=== PATIENT | male | born 1975 | race Caucasian/White ===

== ENCOUNTER 2022-03-10 09:51 | Day surgery (SDC) | payer OTHER, SELFPAY ==
[2022-03-04 11:52] VITALS: BMI 40.3
--- NOTE | 2022-03-09 09:20 | P.CONAN_ITS ---
Documented by User: Dottie Delgado NP 03/09/22 09:21 HPI - Anesthesia Eval Consult details Narrative: 46yo M for Colonoscopy [facility] Past Medical History Medical History Migraine headache Nephrolithiasis Pre-diabetes Sleep apnea Surgical History Surgical History History of back surgery History of vasectomy Hx of removal of neck cyst Social History Social History Advance Directives: No Advance Directives Information Provided: Yes Meds Allergies Allergy/AdvReac Type Severity Reaction Status Date / Time No Known Allergies Allergy Verified 03/10/22 10:07 [No Known Allergies*] Home Medications Medication Instructions Recorded Confirmed Last Taken Type metformin 500 mg tablet,extended 1,000 mg PO DAILY 03/04/22 03/04/22 Unknown History release 24 hr Exam Exam Date and Time: March 09, 2022 0920 Height,Weight and Vital Signs: Height 5 ft 6 in Weight 113.398 kg Assessment and Plan Assessment Anesthesia Assessment: Chart Reviewed Documented by User: Misty Gray MD 03/10/22 10:17 [facility] Active Problems Active Problems: Diabetes Denies COLTON. Patient states he had a sleep study which was negative for COLTON Increased BMI Past Medical History Medical History Migraine headache Nephrolithiasis Pre-diabetes Sleep apnea Family History Family history of problems with anesthesia: No Surgical History Surgical History History of back surgery History of vasectomy Hx of removal of neck cyst History of Problems with Anesthesia: No Social History Social History Advance Directives: No Advance Directives Information Provided: Yes Meds Allergies Allergy/AdvReac Type Severity Reaction Status Date / Time No Known Allergies Allergy Verified 03/10/22 10:07 [No Known Allergies*] Home Medications Medication Instructions Recorded Confirmed Last Taken Type metformin 500 mg tablet,extended 1,000 mg PO DAILY 03/04/22 03/04/22 Unknown History release 24 hr Exam Airway Mallampati Class: I TM Dist: >3cm Neck ROM: Full Loose/Missing/Broken Teeth: Yes (Some missing. No broken or loose) Heart: RRR Lungs: CTAB Assessment and Plan Assessment Anesthesia Assessment: Anesthesia Plan Discussed Final Anesthetic Review Family History of Problems with Anesthesia: No History of Problems with Anesthesia: No NPO: Yes ASA Class: III Final Preanesthetic Review: No Changes in Pt Med Stat, Meds/Allgs Chart Reviewed, Consent Obtained/Reviewed and Anes Risks/Benef Reviewed Patient Risk: Intermediate Procedure Risk: Low Assessment/Block/Sedation in SS: Assess/Block/Sedation-SS Anesthetic Plan Anesthetic Plan: MAC: Disposition: Standard PACU
[2022-03-10 10:08] VITALS: BMI 37.9
[2022-03-10 10:26] VITALS: BP 129/82; PULSE 78; RESP 16; TEMP 36.3; O2SAT 97
[2022-03-10] MEDS: Lactated Ringers 1,000 ML 100 ML IVCONT (10:38)
[2022-03-10 10:40] LABS: Glucose, Whole Blood 103 mg/dL (60-115)
--- NOTE | 2022-03-10 11:13 | MHC.SHP ---
Pre-Procedural Eval Section A Date of Service: 03/10/22 Section B Chief Complaint: screening Details of Present Illness: see H&P no changes Relevant Family History (Specify if Yes): No Relevant Social History: None Present Medications: see Short Stay Collaborative assessment Medical History: No relevant PMH History of Previous Operations: No relevant previous surgery Allergies: Allergies Allergy/AdvReac Type Severity Reaction Status Date / Time No Known Allergies Allergy Verified 03/10/22 10:07 [No Known Allergies*] Review of Systems Sugical H&P ROS: Negative: Constitution, Cardiovascular, Respiratory, Neurological, Psychiatric, Hem-Onc, Allergic/Immunologic, Gastrointestinal, Genitourinary, Musculoskeletal, Integumentary, Endocrine and Eyes/Ears/Nose/Throat Exam Surgical H&P Exam: Normal: HEENT, Normal: Heart, Normal: Lungs, Normal: Extremities, Normal: Abdomen, Normal: Skin and Normal: Neurological Plan I have reviewed the history and physical and performed a pertinent physical examination on my patient. No changes have occurred unless specified.
[2022-03-10 11:46] VITALS: BP 119/56; PULSE 78; RESP 16; TEMP 36.2; O2SAT 94
--- NOTE | 2022-03-10 11:46 | PM.OP ---
Brief Operative Note Date of Service: 03/10/22 Pre-op diagnosis: screening Post-op diagnosis: same Procedure: colonoscopy Surgeon: Billy Mcclure Anesthesia: MAC Was an Invasive Cardiovascular Technologist used for this Procedure?: No Estimated blood loss (mL): 2 Pathology: other Condition: stable Disposition: PACU
[2022-03-10 12:00] VITALS: BP 105/65; PULSE 70; RESP 16; O2SAT 93
[2022-03-10 12:15] VITALS: BP 104/66; PULSE 76; RESP 16; TEMP 36.2; O2SAT 95
--- NOTE | 2022-03-10 22:03 | OP_ITS ---
SURGEON: Billy Mcclure MD INDICATIONS: Colon cancer screening. PREOPERATIVE DIAGNOSIS: POSTOPERATIVE DIAGNOSIS: PROCEDURE PERFORMED: ESTIMATED BLOOD LOSS: COMPLICATIONS: ANESTHESIA: ASSISTANTS: SPECIMENS: PROCEDURE: Colonoscopy to the terminal ileum with biopsy. MEDICATIONS: Monitored anesthesia care. DESCRIPTION OF PROCEDURE: History and physical performed. The risks and benefits of the procedure were explained to the patient. Informed consent was obtained. The patient was placed in the left lateral decubitus position. A digital rectal exam was performed and was found to be normal. The Olympus pediatric video colonoscope was introduced into the rectum and advanced to the cecum without difficulty. The cecum was identified by transillumination, palpation, and identification of ileocecal valve. Examination was performed. The scope was removed. He tolerated the procedure well and was taken to recovery area in stable condition. FINDINGS: The terminal ileum was examined and appeared normal. The visualized colonic mucosa was within normal limits without evidence of masses or ulcers. A single polyp measuring less than 5 mm was identified at 40 cm from the anal verge. The polyp was removed with biopsy forceps. No other polyps were identified. Retroflexed examination did show some small internal hemorrhoids. IMPRESSION: Colon polyp. RECOMMENDATIONS: Follow up the biopsy results. MD FRANCIS García/LEOPOLDO / [id number]
== END 2022-03-10 13:04 | disposition home or self-care (01) ==
PROVIDERS: PCP Internal Medicine; Visit Provider Internal Medicine Gastroenterology
PROC: 0DJD8ZZ Inspection of Lower Intestinal Tract, Via Natural or Artificial Opening Endoscopic (ICD-10-PCS; CPT 45378; principal; 2022-03-10 10:50)
DX: Z12.11 Encounter for screening for malignant neoplasm of colon (principal); K63.5 Polyp of colon; K64.8 Other hemorrhoids; R73.03 Prediabetes; G43.909 Migraine, unspecified, not intractable, without status migrainosus; Z79.84 Long term (current) use of oral hypoglycemic drugs; Z98.52 Vasectomy status; Z87.442 Personal history of urinary calculi
CPT/HCPCS: 45380; 82947; 88305

== ENCOUNTER 2024-11-07 14:03 | Outpatient (AMB) | payer OTHER, SELFPAY ==
--- NOTE | 2024-11-07 14:08 | MHC.PC.OV ---
Vital Signs 11/07/24 14:10 Height 5 ft 6.93 in Weight 224 lb 4 oz BMI 35.2 BP 120/82 Blood Pressure Location Lt brachial Position Sitting Pulse 80 Pulse Source Pulse Oximeter Temp 97.1 F Temp Source Temporal Artery Scan Pulse Oximetry (%) 97 Oxygen Delivery Method Room Air Intake Visit Reasons: establish care Intake Note: Patient is a new patient here to establish care for Pre-diabetes. Transferring care from [facility]. Medical records have been requested and have not received. Architecture Technician Required: No Water Hydrant Installer: Not Required per policy Accompanied by: Self / Same As Patient Allergies No Known Allergies [No Known Allergies*] Allergy (Verified 11/07/24 14:31) Medication List - Last Reconciled 11/07/24 by Nereyda Buenrostro PA-C No Known Home Meds Tobacco use date assessed: 11/07/24 Dental Screening Dental Screen Date: 11/07/24 Did you have a dental visit in the last 12 months?: Yes Did you have a dental problem in the last 6 months where you did not have access to dental care?: No Was dental information given to patient?: Patient has dentist HPI establish care HPI Details 49-year-old male coming to the office for the 1st time. Patient completed colonoscopy [address] Mcclure hyperplastic colon polyp. The patient is a 49-year-old male presenting with elevated blood glucose levels and diabetes management. Diagnosed with prediabetes three years ago, the patient now has Type 2 Diabetes Mellitus with a current A1c of 10.22%. left shoulder pain is reported, exacerbating while lying on it. History of migraines that resolved with caffeine cessation and avoidance of spicy foods. Negative screening for anxiety and depression was reported, though screening was conducted. Recently had eye exam was given a new prescription. 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 1. Little interest or pleasure in doing things: not at all 2. Feeling down, depressed, or hopeless: not at all 3. Trouble falling or staying asleep, or sleeping too much: not at all 4. Feeling tired or having little energy: not at all 5. Poor appetite or overeating: not at all 6. Feeling bad about yourself - or that you are a failure or have let yourself or your family down: not at all 7. Trouble concentrating on things, such as reading the newspaper or watching television: several days 8. Moving or speaking so slowly that other people could have noticed. Or the opposite - being so fidgety or restless that you have been moving around a lot more than usual: several days 9. Thoughts that you would be better off or of hurting yourself in some way: not at all Total score: 2 Depression Screening Interpretation: Positive Depression Screening Follow-up: Declines treatment Depression Screening Done: Yes Source: Developed by Drs. Ricardo Renteria, Ellie Santoro, George Hanley and colleagues, with an educational j carlos from [employer]. Thrive Questionnaire Date Thrive assessed: 11/07/24 I am a: Patient What is your living situation today?: I have a steady place to live Within the past 12 months, did the food you bought not last and you didn't have the money to get more?: Never true Within the past 12 months, did you worry whether your food would run out before you got money to buy more?: I choose not to answer this question Do you have trouble paying for medicines?: I choose not to answer this question Do you have trouble getting transportation to medical appointments?: No Do you have trouble paying your heating and electricity bill?: I choose not to answer this question Do you have trouble taking care of your child, family member or friend?: No Do you have trouble with day-to-day activities such as bathing, preparing meals, shopping, managing finances, etc.?: No Are you currently unemployed and looking for a job?: Yes Are you interested in more education?: No Please select the resources that you would like help with: None Currently or been in a relationship where the following occur: No concerns reported THRIVE Score: 0 AUDIT C Alcohol Use Questionnaire (AUDIT-C) 1. How often do you have a drink containing alcohol?: Never Total Score: 0 YNES-7 AMB Questionnaire YNES-7 Date YNES - 7 assessed: 11/07/24 Feeling nervous, anxious, or on edge: 0 = Not at all Not being able to stop or control worryin = Several days Worrying too much about different things: 1 = Several days Trouble relaxin = Not at all Being so restless that it is hard to sit still: 0 = Not at all Becoming easily annoyed or irritable: 0 = Not at all Feeling afraid as if something awful might happen: 0 = Not at all Total YNES-7 score (0-4 normal; 5-9 mild; 10-14 moderate; 15-21 severe): 2 Source: Developed by Drs. Ricardo Renteria, Ellie Santoro, George Hanley and colleagues, with an educational j carlos from [employer]. YNES-7 Assessment Billing YNES-7 Assessment Tool: YNES-7 Assessment 03676 Review of Systems Const Denies body aches, Denies chills and Denies poor appetite Eyes Reports no additional complaints ENT Denies dizziness Card Denies chest pain, Denies syncope, Denies edema, Denies irregular heart rhythm, Denies lightheadedness and Denies dyspnea Resp Denies dyspnea GI Denies abdominal pain, Denies constipation, Denies diarrhea, Denies nausea and Denies vomiting Reports no additional complaints Musc Reports no additional complaints and Denies abnormal gait Skin/Breast Reports system reviewed and no additional complaints, except as documented Neuro Denies abnormal gait, Denies dizziness and Denies syncope Psych Reports no additional complaints Physical exam (Primary Care) BMI Assessment/Plan discussion: High BMI High, discussed plan: dietary and physical activity Tobacco/Smoking Status: Tobacco use Status Patient Tobacco Use Status Never used Tobacco 03/10/22 11:44 Depression Screening Interpretation: Positive Depression Screening Follow-up: Declines treatment Thrive Assessment: Date of Thrive Assessment Date Thrive assessed 11/07/24 11/06/24 23:13 Currently or been in a relationship where the following occur: No concerns reported Const General: cooperative, healthy appearing, comfortable and no acute distress Orientation/consciousness: patient oriented x3 HENMT Head: Yes normocephalic Ears: hearing grossly normal bilaterally General nose exam: Normal external nose present Eyes General: appearance normal, both eyes and all related structures Conjunctivae: conjunctivae normal Neck Neck: Yes full ROM and Yes no lymphadenopathy Resp Effort & Inspection: normal respiratory effort Auscultation: clear to auscultation bilaterally, no crackles, no rales, no rhonchi and no wheezes Cardio Rate: regular rate Rhythm: regular rhythm Skin General skin exam: no rashes or lesions noted Neuro General: patient oriented x3 Gait exam (Neuro): Normal gait present Extrem Other: Tenderness to palpation over entirety of left shoulder and pain with internal rotation of left shoulder General: Yes normal to inspection, Yes full ROM and No edema Psych Affect: normal affect Attitude: cooperative Insight: Good insight present (Psych) Judgement: Good judgement present (Psych) Results AMB Hemoglobin A1c AMB Hemoglobin A1c 10.2 % Last Edit by ALVINA Gaona on 11/07/24 14:38 Coding Level of Care Code New Pt Level 4 (43996) Diagnoses Migraine headache G43.909 Sleep apnea G47.30 Diabetes E11.9 Screening for hypercholesterolemia Z13.220 Left shoulder pain M25.512 Obesity (BMI 30-39.9) E66.9 Additional Codes YNES-7 Assessment Billing - YNES-7 Assessment Tool: YNES-7 Assessment [id number] ([id number]) Assessment & Plan Assessment & Plan (1) Migraine headache: Comment: resolved with caffeine cessation Code(s): G43.909 - Migraine, unspecified, not intractable, without status migrainosus Category: Medical Plan: Patient no longer reporting migraine headaches. (2) Sleep apnea: Code(s): G47.30 - Sleep apnea, unspecified Category: Medical Plan: Previous sleep studies showed no evidence of COLTON. (3) Diabetes: Code(s): E11.9 - Type 2 diabetes mellitus without complications Category: Medical Plan: Decrease the amount of carbohydrates such as pasta, bread, rice, and potatoes and limit the amount of sweets. Although fruits are generally healthy they should be eaten in moderation as they are still high in sugar. Hemoglobin A1c goal of less than 7%. A1c in the clinic today over 10%. I did recommend the use of insulin which was declined and patient would like to avoid injections at this time. Plan to start on Metformin 500 BID and follow up in 3 months. I also discussed with patient lifestyle management and resources were given to the patient. (4) Screening for hypercholesterolemia: Code(s): Z13.220 - Encounter for screening for lipoid disorders Category: Medical Plan: labs ordered (5) Left shoulder pain: Code(s): M25.512 - Pain in left shoulder Category: Medical Plan: Patient having left shoulder pain tenderness on exam today. Ordered for left shoulder x-ray for further evaluation given cyclobenzaprine for nighttime pain. (6) Obesity (BMI 30-39.9): Code(s): E66.9 - Obesity, unspecified Category: Medical Plan: Healthy diet and regular exercise is encouraged. Plan A comprehensive management plan was devised for the patient's Type 2 Diabetes Mellitus, including prescribing Metformin to control high blood glucose levels, with a focus on dietary modifications to minimize high-carbohydrate intake. Diagnostic evaluations for cholesterol were outlined to assess heart disease risk due to diabetes. An x-ray was requested for persistent shoulder pain to rule out structural issues, with physical therapy suggested for pain relief. Follow-up in three months to monitor disease progression and glucose control was established. This note was constructed using voice recognition software. While every effort has been made to ensure accuracy and cephalometric technician, still areas may have been included sometimes these areas may affect the content or meeting of the given symptoms. Total time spent caring for the patient today was 30 minutes. This includes time spent before the visit reviewing the chart, time spent during the visit, and time spent after the visit and documentation. Patient was informed and verbally consented to the use of an ambient scribe for clinic note documentation during this visit. Orders: Orders PSA, Ultra Sensitive Today Z00.00 - Encounter for general adult medical examination without abnormal findings Vitamin B12 and Folate Today Z00.00 - Encounter for general adult medical examination without abnormal findings Vitamin D 25-OH Total Today Z00.00 - Encounter for general adult medical examination without abnormal findings Microalbumin, Random (w Creat) Today E11.9 - Type 2 diabetes mellitus without complications AMB Hemoglobin A1c Today Z13.9 - Encounter for screening, unspecified Comprehensive Met. Panel Today Z00.00 - Encounter for general adult medical examination without abnormal findings Complete Blood Count Auto Diff Today Z00.00 - Encounter for general adult medical examination without abnormal findings Lipid Panel Today Z13.220 - Encounter for screening for lipoid disorders Free T4 (Free Thyroxine) Today Z00.00 - Encounter for general adult medical examination without abnormal findings TSH reflex Free T4 Today Z00.00 - Encounter for general adult medical examination without abnormal findings UA CC w/rflx Micro + Cult Today R35.89 - Other polyuria XR shoulder LT min 2V Today M25.512 - Pain in left shoulder Medications: New metformin 500 mg PO BID 90 days 180 tabs 0RF cyclobenzaprine 5 mg PO BEDTIME 14 tabs 0RF
[2024-11-07 14:10] VITALS: BP 120/82; PULSE 80; TEMP 36.2; O2SAT 97; BMI 35.2
--- OUTSIDE RECORDS SUMMARY | 2024-11-07 17:13 | XMS_ITS | Patient Health Record ---
Author Organization [facility] Address [address] [place] [address] Care Team Providers Care Director Manufacturing Engineering Name Role Phone Ruiz Hsu Primary Care Provider Billy Davis Jr Unavailable Allergies No Known Allergies Reason For Referral No Information Medications Medication SIG (Take, Route, Frequency, Duration) Notes Start Date End Date Status metFORMIN HCl ER Act dominick MiraLax (colon prep) 17 GM/SCOOP mixed with Gatorade or Crystal Light Orally begin at 5:00 p.m. the day before the procedure for 1 day 02/05/2022 Active Immunizations Vaccine Route Administration Date Status Comme nts Influenza Unknown 04/02/2021 Administered Social History Tobacco Use: Social History Observation Description Date Details (start date - stop date) Never Smoker NA - NA Tobacco Use/Smoking Question Answer Notes Patient is a nonsmoker Alcohol Screen Question Answer Notes Did you have a drink containing alcohol in the p ast year? No Points 0 Interpretation Negative Problems Problem Type SNOMED Code ICD Code Onset Dates Problem Status W/U Status Risk Notes Problem [id number] Colon cancer screening (Z12.11) Active confirmed Problem [id number] Encounter for other preprocedural examination (Z01.818) Active confirmed Problem [id number] [facility] (current) use of oral hypoglycemic drugs (Z79.84) Active confirmed Plan Of Treatment Future Test Test Name Order Date COLONOSCOPY 02/05/2022 Insurance Providers Payer Name Payer Address Payer Phone Subscriber Number Group Number Insured Name Patient Relationship to Insured Coverage Start Date Coverage End Date [facility] [address] [place] [phone] [id number] KARMA BISHOP Self - patient is the insured Medical (General) History Medical History History ICD Code Nephrolithiasis prediabetic Migraine headaches Surgical History Surgery Date(Month/Year) Lumbar back fusion x2, one by anterior a pproach vasectomy cyst removed from neck
--- OUTSIDE RECORDS SUMMARY | 2024-11-07 17:13 | XMS_ITS | Continuity of Care Document ---
Author Organization [employer] Address [address] [place] [address] Insurance Providers Payer Plan Claims Address Claims Phone Policy Number Group Number Relation Employer Guarantor Name Guarantor Guarantor Address Guarantor Phone [facility] [address], [address], [place] [address] tel:[phone] [id number] Self Riaz L Dana 1975 [address], [place] [address] [facility] [address], [address], [place] [address] [id number] Self Riaz L Dana 1975 [address], [place] [address] [facility] [address] [facility], [address] [address] [id number] Self Riaz L Dana 1975 [address], [place] [address] Problems Condition ICD9 code ICD10 code SNOMED code Start Date End Date S tatus Encounter for screening for other metabolic disorders Z13.228 Results No Results Allergies, adverse reactions, alerts No known allergies and adverse reactions Medications No administered medications reported Vital Signs No vital signs reported Social History No smoking Hx information available
--- OUTSIDE RECORDS SUMMARY | 2024-11-07 17:13 | XMS_ITS | Clinical Summary ---
Author Organization [employer] Address [address] [facility] [address] [place] [address] Care Team Providers Care Ell Tutor Name Role Phone Chani Morejon COMPLIANCE PROFESSIONAL Primary Care Provider [phone] Allergies No known active allergies Medications No known medications Active Problems No known active problems Social History Tobacco Use Types Packs/Day Years Used Date Smoking Tobacco: Never Smokeless Tobacco: Never Sex and Gender Information Value Date Recorded Sex Assigned at Male 06/01/2022 10:39 AM EDT Legal Sex Male 10:39 AM EDT Gender Identity Male 06/01/2022 10:39 AM EDT Sexual Orientation Straight 06/01/2022 10 :39 AM EDT Last Filed Vital Signs Vital Sign Reading Time Taken Comments Blood Pressure 112/78 10/03/2021 12:03 AM EST Pulse 72 10/03/2021 12:03 AM EST Temperature - - Respiratory Rate - - Oxygen Saturation - - Inhaled Oxygen Concentration - - Weight 110 kg (243 lb 3.2 oz) 10/03/2021 12:03 A M EST Height 172.7 cm (5' 8 ) 10/03/2021 12:03 AM EST Body Mass Index 36.98 10/03/2021 12:03 AM EST Plan of Treatment Health Maintenance Due Date Last Done Comments CT Colonography 1974 Colonoscopy 1974 Colorectal Cancer Screening 1974 Depression Screening 1974 FIT DNA/Cologuard 1974 FIT 1974 FOBT 1974 SDOH Screening 1974 Sigmoidoscopy 1974 Alcohol/Substance Use Screening 1986 Family Planning (PISQ) 1989 Hepatitis B Vaccines (1 of 3 - 19+ 3-dose series) 1993 COVID-19 Vaccine (4 - 2023-2 5 season) 2024 10/03/2021, 12/16/2020, 11/25/2020 Influenza Vaccine (#1) 2024 10/03/2021 Pneumococcal Vaccine: 50+ Years (1 of 1 - PCV) 2024 Zoster Vaccines (1 of 2) 2024 Tobacco Screening 04/11/2025 04/11/2024 Lipid Panel 11/12/2026 11/12/2021 DTaP/Tdap/Td Vaccines (2 - T d or Tdap) 06/09/2031 06/09/2021 RSV Patients and Patients Aged 60 years or older (1 - 1-dose 75+ series) 2049 HIV Screening Completed 11/12/2021 Hepatitis C Screening Completed 11/12/2021 HIB Vaccines Aged Out No longer eligi ble based on patient's age to complete this topic HPV Vaccines Aged Out No longer eligi ble based on patient's age to complete this topic Hepatitis A Vaccines Aged Out No long er eligible based on patient's age to complete this topic IPV Vaccines Aged Out No longer eligi ble based on patient's age to complete this topic Meningococcal Vaccine Aged Out No aleksandra marianna eligible based on patient's age to complete this topic RSV under 20 months Aged Out No longe r eligible based on patient's age to complete this topic Rotavirus Vaccines Aged Out No longer eligible based on patient's age to complete this topic Procedures Procedure Name Priority Date/Time Associated Diagnosis Comments ZZZ HISTORICAL HEPATITIS C AB W/REFL TO HCV RNA, QN, PCR Routine 11/12/2021 8:36 AM EDT HIV 1/2 ANTIGEN/ANTIBODY, FOURTH GENERATION W/RFL Routine 11/12/2021 8:36 AM EDT LIPID PANEL, STANDARD Routine 11/12/2021 8:36 AM EDT from Last 3 Months or Most Recently Relevant to Health Maintenance Results * HEPATITIS C AB W/REFL TO HCV RNA, QN, PCR (11/12/2021 8:36 AM EDT) HEPATITIS C ANTIBODY NON-REACT BEKA NON-REACT BEKA [facility] INDEX 0.04 <1.00 [facility] Comment: ?? HCV antibody was non-reactive. There is no laboratory ?? evidence of HCV infection. ?? In most cases, no further action is required. However, if recent HCV exposure is suspected, a test for HCV RNA (test code 22302) is suggested. ?? For additional information please refer to http://[employer].ams AG/faq/JCF96r0 (This link is being provided for informational/ educational purposes only.) ?? 11/12/2021 8:36 AM EDT Ruiz Hsu MD HISTORICAL/NON ORDERABLE LAB S Final Result [facility] [address] * HIV 1/2 ANTIGEN/ANTIBODY,FOURTH GENERATION W/RFL (11/12/2021 8:36 AM EDT) HIV-1/2 ANTIGEN AND ANTIBODIES, 4TH GENERATION W/ REFLEX NON-REACT BEKA NON-REACT BEKA [facility] Comment: HIV-1 antigen and HIV-1/HIV-2 antibodies were not detected. There is no laboratory evidence of HIV infection. ?? PLEASE NOTE: This information has been disclosed to you from records whose confidentiality may be protected by state law. ??If your state requires such protection, then the state law prohibits you from making any further disclosure of the information without the specific written consent of the person to whom it pertains, or as otherwise permitted by law. A general authorization for the release of medical or other information is NOT sufficient for this purpose. ? For additional information please refer to http://[employer]/faq/XLU776 (This link is being provided for informational/ educational purposes only.) ? The performance of this assay has not been clinically validated in patients less than 2 years old. ?? 11/12/2021 8:36 AM EDT us Ruiz Hsu MD LAB BLOOD ORDERABLES Final R esult Performing Organization Address [facility] Co de Phone Number [facility] [address] * (ABNORMAL) LIPID PANEL, STANDARD (11/12/2021 8:36 AM EDT) Chol/HDLC Ratio 6.0(H) <5.0 (calc) [facility] Cholesterol, Total 229(H) <200 mg/dL [facility] HDL Cholesterol 38(L) > OR = 40 mg/dL [facility] LDL Cholesterol 144(H) mg/dL (calc) [facility] Comment: Reference range: <100 ?? Desirable range <100 mg/dL for primary prevention; ?? <70 mg/dL for patients with CHD or diabetic patients ?? with > or = 2 CHD risk factors. ?? LDL-C is now calculated using the Brandee ?? calculation, which is a validated novel method providing ?? better accuracy than the Friedewald equation in the ?? estimation of LDL-C. ?? Julian DUNBAR et al. RADHA. 2013;310(19): 1363-9461 ?? (http://education.Zarbee's.com/faq/AZD535) Non-HDL Cholesterol 191(H) <130 mg/dL (calc) [facility] Comment: For patients with diabetes plus 1 major ASCVD risk ?? factor, treating to a non-HDL-C goal of <100 mg/dL ?? (LDL-C of <70 mg/dL) is considered a therapeutic ?? option. Triglycerides 287(H) <150 mg/dL [facility] Comment: ?? If a non-fasting specimen was collected, consider repeat triglyceride testing on a fasting specimen if clinically indicated. ?? Ofelia et al. J. of Clin. Lipidol. 2015;9:129-169. ?? 11/12/2021 8:36 AM EDT us Ruiz Hsu MD LAB BLOOD ORDERABLES Final R esult Performing Organization Address [facility] Co de Phone Number [facility] [address] [place] [address], from Last 3 Months or Most Recently Relevant to Health Maintenance Insurance [place], [place] [facility] , [address] [place] [address] Care Teams Ell Tutor Relationship Specialty Start Date End Date Chani Morejon FNP [address] [place] [id number] PCP - General Family Medicine 06/22/22
== END 2024-11-07 15:08 | disposition home or self-care (01) ==
LOC: HO.HMCH 14:04
PROVIDERS: PCP Internal Medicine
DX: G43.909 Migraine, unspecified, not intractable, without status migrainosus (principal); E11.9 Type 2 diabetes mellitus without complications; E66.9 Obesity, unspecified; Z68.35 Body mass index [BMI] 35.0-35.9, adult; G47.30 Sleep apnea, unspecified; Z13.220 Encounter for screening for lipoid disorders; M25.512 Pain in left shoulder

== ENCOUNTER → 2024-11-07 14:03 | Outpatient (BNVA) | payer OTHER, SELFPAY | PROVIDERS: PCP Internal Medicine | DX: G43.909 Migraine, unspecified, not intractable, without status migrainosus (principal); G47.30 Sleep apnea, unspecified; E11.9 Type 2 diabetes mellitus without complications; M25.512 Pain in left shoulder; E66.9 Obesity, unspecified; Z68.35 Body mass index [BMI] 35.0-35.9, adult | CPT/HCPCS: 83036; 96127 ==

== ENCOUNTER 2024-11-22 08:00 | Outpatient (REF) | payer OTHER, SELFPAY ==
--- OUTSIDE RECORDS SUMMARY | 2024-11-22 08:05 | XMS_ITS | Clinical Summary ---
Author Organization [employer] Address [address] [facility] 7[address] [place] [address] Care Team Providers Care Medical Oncologist Name Role Phone Chani Morejon STONECUTTER ASSISTANT Primary Care Provider [phone] Allergies No known active allergies Medications No [...] HEPATITIS C ANTIBODY NON-REACT BEKA NON-REACT BEKA [facility] INDEX 0.04 <1.00 [facility] Comment: ?? HCV antibody was non-reactive. There is no laboratory ?? evidence of HCV infection. ?? In most cases, no further action is required. However, if recent HCV exposure is suspected, a test for HCV RNA (test code 91212) is suggested. ?? For additional information please refer to http://Welltheon.Yumber/faq/MEQ91d9 (This link is being provided for informational/ educational purposes only.) ?? 11/12/2021 8:36 AM EDT Ruiz Hsu MD HISTORICAL/NON ORDERABLE LAB S Final Result [facility] [address] * HIV 1/2 ANTIGEN/ANTIBODY,FOURTH GENERATION W/RFL (11/12/2021 8:36 AM EDT) HIV-1/2 ANTIGEN AND ANTIBODIES, 4TH GENERATION W/ REFLEX NON-REACT BEKA NON-REACT BEKA [facility] Comment: HIV-1 antigen and HIV-1/HIV-2 [...] ? For additional information please refer to http://Welltheon.Yumber/faq/LDH487 (This link is being provided for informational/ educational purposes only.) ? The performance of this assay has not been clinically validated in patients less than 2 years old. ?? 11/12/2021 8:36 AM EDT us Ruiz Hsu MD LAB BLOOD ORDERABLES Final R esult Performing Organization Address [facility] Co de Phone Number [facility] [address] * (ABNORMAL) LIPID PANEL, STANDARD (11/12/2021 [...] ?? Julian DUNBAR et al. RADHA. 2013;310(19): 4568-8397 ?? (http://education.[employer].com/faq/QLH445) Non-HDL Cholesterol 191(H) <130 mg/dL (calc) [facility] [...] ORDERABLES Final R esult Performing Organization Address [facility] Co de Phone Number [facility] [address] [place] [address], from Last 3 Months or Most Recently Relevant to Health Maintenance Insurance [place], [place] [facility] , [address] [place] [address] Care Teams Medical Oncologist Relationship Specialty Start Date End Date Chani Morejon FNP [address] [place] [id number] PCP - General Family Medicine 06/22/22
--- OUTSIDE RECORDS SUMMARY | 2024-11-22 08:05 | XMS_ITS | Patient Health Record ---
Author Organization [facility] Address [address] [place] [address] Care Team Providers Care Solar Water Heater Installer Name Role Phone Ruiz Hsu Primary Care [...] Problem Status W/U Status Risk Notes Problem [id number] Colon cancer screening (Z12.11) Active confirmed Problem [id number] Encounter for other preprocedural examination (Z01.818) Active confirmed Problem [id number] [facility] (current) use of oral hypoglycemic drugs (Z79.84) Active confirmed Plan Of Treatment Future Test Test Name Order Date COLONOSCOPY 02/05/2022 Insurance Providers Payer Name Payer Address Payer Phone Subscriber Number Group Number Insured Name Patient Relationship to Insured Coverage Start Date Coverage End Date [facility] [address] [facility] [place] [phone] [id number] KARMA BISHOP Self - patient is the insured Medical (General) History Medical History History ICD Code Nephrolithiasis prediabetic Migraine headaches Surgical History Surgery Date(Month/Year) Lumbar back fusion x2, one by anterior a pproach vasectomy cyst removed from neck
[2024-11-22 09:51] LABS: MANUAL DIFF FLAG NO
[2024-11-22 09:57] LABS: Appearance Urine Clear; Color Urine Yellow; Glucose Urine UA Negative (Negative); Leukocyte Esterase Urine Negative (Negative); Nitrite Urine Negative (Negative); Urine Blood Negative (Negative); Urine Ketones Negative (Negative); Urine Protein Trace mg/dL (Neg-Trace)
[2024-11-22 10:02] LABS: Basophils Percent Auto 0.8 % (0-2); Eosinophils Absolute Auto 0.1 X10*3/uL (0.0-0.4); Eosinophils Percent Auto 1.8 % (0-4); Hematocrit 40.2 % (42.0-52.0); Hemoglobin 13.8 g/dl (14.0-18.0); Imm Gran Abs Auto 0.01 X10*3/uL (0.00-0.03); Imm Gran Pct Auto 0.3 % (0.0-0.4); Lymphocytes Absolute Auto 1.9 X10*3/uL (1.2-4.9); Lymphocytes Percent Auto 48.7 % (20-40); Mean Corpuscular HGB Conc 34.3 g/dl (31.0-36.0); Mean Corpuscular Hemoglobin 28.9 pg (27.0-33.0); Mean Corpuscular Volume 84.3 fL (80.0-98.0); Monocytes Absolute Auto 0.5 X10*3/uL (0.1-1.2); Monocytes Percent Auto 11.8 % (2-11); Neutrophils Absolute Auto 1.4 x10*3/uL (2.0-8.3); Neutrophils Percent Auto 36.6 % (45-73); Platelet Count 301 X10*3/uL (160-400); Red Blood Count 4.77 X10*6/uL (4.60-5.80); Red Cell Distribution Width 11.5 % (11.0-16.0); White Blood Count 3.8 X10*3/uL (4.8-10.8)
[2024-11-22 10:54] LABS: Creatinine Urine 149.31 mg/dL; Microalbum/Creatinine Ratio Ur 24.7 ug/mg cr (<30)
[2024-11-22 11:52] LABS: Alanine Aminotransferase 38 U/L (0-40); Albumin Level 4.2 g/dL (3.5-5.0); Alkaline Phosphatase 59 U/L (39-117); Anion Gap 11 (12-20); Aspartate Amino Transferase 26 U/L (5-37); Bilirubin Total 0.4 mg/dL (0.0-1.0); Blood Urea Nitrogen 12 mg/dL (9-16); Calcium 9.3 mg/dL (8.4-10.2); Carbon Dioxide 28 mmol/L (22-29); Chloride 104 mmol/L (96-108); Cholesterol 190 mg/dL (<200); Estimated Glomerular Filt Rate > 60; Free T4 (Free Thyroxine) 0.95 ng/dL (0.71-1.85); Glucose Random 143 mg/dL (60-115); HDL Cholesterol 40 mg/dL (>40); LDL Cholesterol Calculated 125 mg/dL (<100); Potassium 4.3 mmol/L (3.3-5.1); Sodium 139 mmol/L (135-145); TSH reflex Free T4 5.13 uIU/mL (0.32-4.0); Total Protein 7.4 g/dL (6.5-8.0); Triglycerides 127 mg/dL (<150); Vitamin D 25-OH Total 34.6 ng/mL (>30)
[2024-11-22 12:29] LABS: Folate 12.7 ng/mL (> or = 4.0); Vitamin B12 618 pg/mL (200-900)
[2024-11-26 15:33] LABS: PSA, Ultra Sensitive 0.96 ng/mL
== END 2024-11-22 08:01 | disposition home or self-care (01) ==
LOC: HO.10HDL 08:00
DX: Z00.00 Encounter for general adult medical examination without abnormal findings (principal); E11.9 Type 2 diabetes mellitus without complications; Z13.220 Encounter for screening for lipoid disorders; R35.89 Other polyuria; Z12.5 Encounter for screening for malignant neoplasm of prostate
CPT/HCPCS: 36415; 80053; 80061; 81003; 82043; 82306; 82570; 82607; 82746; 84153; 84439; 84443; 85025

== ENCOUNTER 2025-02-13 13:41 | Outpatient (AMB) | payer OTHER, SELFPAY ==
--- NOTE | 2025-02-13 13:46 | A.OFFPC_ITS ---
Vital Signs 02/13/25 13:47 Height 5 ft 6.93 in Weight 227 lb 4 oz BMI 35.7 Blood Pressure Location Lt brachial Position Sitting Pulse 78 Pulse Oximetry (%) 98 Oxygen Delivery Method Room Air Intake Visit Reasons: f/u DM Plant Production Manager Required: No Accompanied by: Self / Same As Patient Allergies No Known Allergies (No Known Allergies*) Allergy (Verified 02/13/25 14:07) Medication List - Last Reconciled 02/13/25 by Nereyda Buenrostro PA-C blood sugar diagnostic (FreeStyle Lite Strips) As directed BID blood-glucose meter (FreeStyle Lite Meter kit) As directed BID cyclobenzaprine 5 mg PO BEDTIME metformin 500 mg PO BID 90 days Tobacco use date assessed: 02/13/25 Dental Screening Dental Screen Date: 02/13/25 HPI f/u DM HPI Details 49 year old male with past medical histo ry of newly diagnosed diabetes mellitus, hypercholesterolemia, migraine, and obesity last seen 10/2024 coming in for follow up. Presenting with diabetes mellitus, hypercholesterolemia, and shoulder pain. The patient has been managing diabetes with metformin, initially at 500 mg twice daily, with recent adjustments to 1000 mg twice daily due to an A1c reduction from 10.1% to 7.4%. The patient has reduced intake of sweets and candy, contributing to improved glycemic control. The patient's LDL cholesterol is 125 mg/dL, above the target of less than 100 mg/dL for individuals with diabetes. The patient reports persistent left shoulder pain exacerbated by lifting the arm, with symptoms worsening over several months. The pain is primarily located in the back of the shoulder, with no prior x-ray conducted for evaluation. 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 4. Feeling tired or having little energy: not at all Source: Developed by Drs. Ricardo Renteria, Ellie Santoro, George Hanley and colleagues, with an educational j carlos from [employer]. Thrive Questionnaire Date Thrive assessed: 02/13/25 I am a: Patient What is your living situation today?: I have a steady place to live Within the past 12 months, did the food you bought not last and you didn't have the money to get more?: Never true Within the past 12 months, did you worry whether your food would run out before you got money to buy more?: I choose not to answer this question Do you have trouble paying for medicines?: I choose not to answer this question Do you have trouble getting transportation to medical appointments?: No Do you have trouble paying your heating and electricity bill?: I choose not to answer this question Do you have trouble taking care of your child, family member or friend?: No Do you have trouble with day-to-day activities such as bathing, preparing meals, shopping, managing finances, etc.?: No Are you currently unemployed and looking for a job?: Yes Are you interested in more education?: No Please select the resources that you would like help with: None Currently or been in a relationship where the following occur: No concerns reported THRIVE Score: 0 AUDIT C Alcohol Use Questionnaire (AUDIT-C) 3. How often do you have six or more drinks on one occasion?: Never Total Score: 0 YNES-7 AMB Questionnaire YNES-7 Date NYES - 7 assessed: 02/13/25 Source: Developed by Drs. Ricardo Renteria, Ellie Santoro, George Hanley and colleagues, with an educational j carlos from [employer]. Review of Systems Const Denies body aches, Denies chills, Denies fever(s), Denies headache(s) and Denies poor appetite Eyes Reports no additional complaints ENT Denies dizziness and Denies headache(s) Card Denies chest pain and Denies dyspnea Resp Denies dyspnea Musc Reports no additional complaints and Denies abnormal gait Skin/Breast Reports system reviewed and no additional complaints, except as documented Neuro Denies abnormal gait, Denies dizziness and Denies headache(s) Psych Reports no additional complaints Physical exam (Primary Care) Vital Signs: Last Vital Signs Pulse 78 02/13/25 13:47 Pulse Ox 98 02/13/25 13:47 Oxygen Delivery Method Room Air 02/13/25 13:47 BMI result Body Mass Index 35.7 Tobacco/Smoking Status: Tobacco use Status Tobacco use date assessed 02/13/25 02/13/25 13:50 Patient Tobacco Use Status Former Tobacco user 02/13/25 13:50 e-Cigarette/Vaping Use Never Used 02/13/25 13:50 Thrive Assessment: Date of Thrive Assessment Date Thrive assessed 02/13/25 02/13/25 13:50 Currently or been in a relationship where the following occur: No concerns reported Const General: cooperative, healthy appearing, comfortable and no acute distress Orientation/consciousness: patient oriented x3 HENMT Head: Yes normocephalic Ears: hearing grossly normal bilaterally General nose exam: Normal external nose present Eyes General: appearance normal, both eyes and all related structures Conjunctivae: conjunctivae normal Neck Neck: Yes full ROM and Yes no lymphadenopathy Resp Effort & Inspection: normal respiratory effort Auscultation: clear to auscultation bilaterally, no crackles, no rales, no rhonchi and no wheezes Cardio Rate: regular rate Rhythm: regular rhythm Skin General skin exam: no rashes or lesions noted Neuro General: patient oriented x3 Gait exam (Neuro): Normal gait present Extrem Other: tenderness to palpation over lateral aspect of left shoulder and left trapezius. Pain with lateral raise and internal rotation of left shoulder General: Yes normal to inspection, Yes full ROM and No edema Psych Affect: normal affect Attitude: cooperative Insight: Good insight present (Psych) Judgement: Good judgement present (Psych) Coding Level of Care Code Est Pt Level 4 (28642) Diagnoses Type 2 diabetes mellitus with hyperglycemia, without long-term current use of insulin E11.65 Diabetes mellitus complication status: with hyperglycemia Diabetes mellitus longterm insulin use: without equipment operator intermodal yard use Diabetes mellitus type: type 2 Obesity (BMI 30-39.9) E66.9 Left shoulder pain M25.512 Hypercholesterolemia E78.00 Assessment & Plan Assessment & Plan (1) Diabetes: Code(s): E11.9 - Type 2 diabetes mellitus without complications Category: Medical Qualifiers: Diabetes mellitus complication status: with hyperglycemia Diabetes mellitus longterm insulin use: without equipment operator intermodal yard use Diabetes mellitus type: type 2 Qualified Code(s): E11.65 - Type 2 diabetes mellitus with hyperglycemia Plan: Decrease the amount of carbohydrates such as pasta, bread, rice, and potatoes and limit the amount of sweets. Although fruits are generally healthy they should be eaten in moderation as they are still high in sugar. Hemoglobin A1c goal of less than 7%. Patient was started on Metformin at last visit. A1c in the clinic today 7.4% which is significantly improved but is still not at goal. Plan to increase metformin to 1,000mg BID and repeat A1c in 3 months. (2) Obesity (BMI 30-39.9): Code(s): E66.9 - Obesity, unspecified Category: Medical Plan: Healthy diet and regular exercise is encouraged. (3) Left shoulder pain: Code(s): M25.512 - Pain in left shoulder Category: Medical Plan: Reminded patient about XR and updated the order. Recommend PT and lidocaine patches and orders were placed for both. (4) Hypercholesterolemia: Code(s): E78.00 - Pure hypercholesterolemia, unspecified Category: Medical Plan: Avoid foods that are high in cholesterol such as red meat, fried foods, eggs and baked goods. Triglyceride goal of less than 150 and LDL goal of less than 100. LDL mildly elevated at 125. Discussed ASCVD risk score of 6% borderline. He would like to hold off on medication at this time and would like to work on lifestyle modification at this time. Given resources today and repeat labs in 3 months. Understands the risk of elevated LDL. Plan The plan for diabetes management includes increasing the metformin dosage to 1000 mg twice daily, with a follow-up A1c check in three months to assess the effectiveness of this adjustment. For hypercholesterolemia, lifestyle modifications such as dietary changes and increased physical activity are recommended, with a cholesterol panel to be rechecked after implementing these changes. The shoulder pain will be evaluated with an x-ray, and lidocaine patches have been prescribed for symptomatic relief. Physical therapy is suggested, but the patient may opt for orthopedic consultation if symptoms persist. This note was constructed using voice recognition software. While every effort has been made to ensure accuracy and cardiovascular surgeon, still areas may have been included sometimes these areas may affect the content or meeting of the given symptoms. Total time spent caring for the patient today was 30 minutes. This includes time spent before the visit reviewing the chart, time spent during the visit, and time spent after the visit and documentation. Patient was informed and verbally consented to the use of an ambient scribe for clinic note documentation during this visit. Orders: Orders XR shoulder LT min 2V Today M25.512 - Pain in left shoulder AMB Hemoglobin A1c Today Z13.9 - Encounter for screening, unspecified PT Evaluation and Treatment Today M25.512 - Pain in left shoulder Medications: New lidocaine 5% leave on most painful area for up to 12 hrs 1 patch topical DAILY 30 ea 0RF M25.512 - Pain in left shoulder metformin 1,000 mg PO BID 180 tabs 0RF Discontinued metformin Discontinued Reason: Patient no longer taking 500 mg PO BID 90 days 180 tabs 0RF
[2025-02-13 13:47] VITALS: PULSE 78; O2SAT 98; BMI 35.7
--- OUTSIDE RECORDS SUMMARY | 2025-02-13 15:02 | XMS_ITS | Patient Health Record ---
Author Organization [facility] Address [address] [place] [address] Care Team Providers Care Supervisor Livestock Yard Name Role Phone Ruiz Hsu Primary Care [...] Problem Status W/U Status Risk Notes Problem [id number] Colon cancer screening (Z12.11) Active confirmed Problem [id number] Encounter for other preprocedural examination (Z01.818) Active confirmed Problem [id number] group home (current) use of oral hypoglycemic drugs (Z79.84) Active confirmed Plan Of Treatment Future Test Test Name Order Date COLONOSCOPY 02/05/2022 Insurance Providers Payer Name Payer Address Payer Phone Subscriber Number Group Number Insured Name Patient Relationship to Insured Coverage Start Date Coverage End Date [facility] [address] [place] [address] [phone] [id number] KARMA BISHOP Self - patient is the insured Medical (General) History Medical History History ICD Code Nephrolithiasis prediabetic Migraine headaches Surgical History Surgery Date(Month/Year) Lumbar back fusion x2, one by anterior a pproach vasectomy cyst removed from neck
--- OUTSIDE RECORDS SUMMARY | 2025-02-13 15:02 | XMS_ITS | Clinical Summary ---
Author Organization [employer] Address [address] [facility] [address] [place] [address] Care Team Providers Care Group Care Worker Name Role Phone Unavailable Primary Care Provider Unavailabl e Allergies No known active allergies Medications No [...] FOBT 1974 SDOH Screening 1974 Sigmoidoscopy 1974 Disability Screening 1974 Alcohol/Substance Use Screening 1986 Family Planning (PISQ) 1989 Hepatitis B Vaccines (1 of 3 - 19+ 3-dose series) 1993 COVID-19 Vaccine (4 - 2023-2 5 season) 2024 10/03/2021, 12/16/2020, 11/25/2020 Pneumococcal Vaccine: 50+ Years (1 of 1 - PCV) 2024 Zoster Vaccines (1 of 2) 2024 Influenza Vaccine (#1) 2025 10/03/2021 Tobacco Screening 04/11/2025 04/11/2024 Lipid Panel 11/12/2026 [...] patient's age to complete this topic Meningococcal B Vaccine Aged Out No l onger eligible based on patient's age to complete [...] C ANTIBODY NON-REACT BEKA NON-REACT BEKA [facility] INDEX 0.04 <1.00 [facility] Comment: HCV antibody was non-reactive. There is no laboratory evidence of HCV infection. In most cases, no further action is required. However, if recent HCV exposure is suspected, a test for HCV RNA (test code 77500) is suggested. For additional information please refer to http://HipLogiq.Touch of Classic/faq/PLK96l9 (This link is being provided for informational/ educational purposes only.) 11/12/2021 8:36 AM EDT us Ruiz Hsu MD HISTORICAL/NON ORDERABLE LAB S Final Result [facility] [address] * HIV 1/2 ANTIGEN/ANTIBODY,FOURTH GENERATION W/RFL (11/12/2021 8:36 AM EDT) HIV-1/2 ANTIGEN AND ANTIBODIES, 4TH GENERATION W/ REFLEX NON-REACT BEKA NON-REACT BEKA [facility] Comment: HIV-1 antigen and HIV-1/HIV-2 antibodies were not detected. There is no laboratory evidence of HIV infection. PLEASE NOTE: This information has been disclosed to you from records whose confidentiality may be protected by state law. If your state requires such protection, then the state law prohibits you from making any further disclosure of the information without the specific written consent of the person to whom it pertains, or as otherwise permitted by law. A general authorization for the release of medical or other information is NOT sufficient for this purpose. For additional information please refer to http://HipLogiq.Touch of Classic/faq/MYD886 (This link is being provided for informational/ educational purposes only.) The performance of this assay has not been clinically validated in patients less than 2 years old. 11/12/2021 8:36 AM EDT us Ruiz Hsu MD LAB BLOOD ORDERABLES Final R esult Performing Organization Address [facility] Co de Phone Number [facility] [address] * (ABNORMAL) LIPID PANEL, STANDARD (11/12/2021 8:36 AM EDT) Chol/HDLC Ratio 6.0(H) <5.0 (calc) [facility] Cholesterol, Total 229(H) <200 mg/dL [facility] HDL Cholesterol 38(L) > OR = 40 mg/dL [facility] LDL Cholesterol 144(H) mg/dL (calc) [facility] Comment: Reference range: <100 Desirable range <100 mg/dL for primary prevention; <70 mg/dL for patients with CHD or diabetic patients with > or = 2 CHD risk factors. LDL-C is now calculated using the Julian-Michael calculation, which is a validated novel method providing better accuracy than the Friedewald equation in the estimation of LDL-C. Julian SS et al. RADHA. 2013;310(19): 6731-4840 (http://education.Bitly/faq/UPV843) Non-HDL Cholesterol 191(H) <130 mg/dL (calc) [facility] Comment: For patients with diabetes plus 1 major ASCVD risk factor, treating to a non-HDL-C goal of <100 mg/dL (LDL-C of <70 mg/dL) is considered a therapeutic option. Triglycerides 287(H) <150 mg/dL [facility] Comment: If a non-fasting specimen was collected, consider repeat triglyceride testing on a fasting specimen if clinically indicated. Ofelia et al. J. of Clin. Lipidol. 2015;9:129-169. 11/12/2021 8:36 AM EDT Ruiz Hsu MD LAB BLOOD ORDERABLES Final R esult Performing Organization Address [facility]/ZIP Co de Phone Number [facility] [address] from Last 3 Months or Most Recently Relevant to Health Maintenance Insurance [facility] , [address] [place] [address]
== END 2025-02-13 14:33 | disposition home or self-care (01) ==
LOC: HO.HMCH 13:42
DX: E11.65 Type 2 diabetes mellitus with hyperglycemia (principal); Z68.35 Body mass index [BMI] 35.0-35.9, adult; E66.9 Obesity, unspecified; M25.512 Pain in left shoulder; E78.00 Pure hypercholesterolemia, unspecified

== ENCOUNTER → 2025-02-13 13:41 | Outpatient (BNVA) | payer OTHER, SELFPAY | DX: E11.65 Type 2 diabetes mellitus with hyperglycemia (principal); E78.00 Pure hypercholesterolemia, unspecified; E66.9 Obesity, unspecified; M25.512 Pain in left shoulder; Z79.84 Long term (current) use of oral hypoglycemic drugs; Z68.35 Body mass index [BMI] 35.0-35.9, adult | CPT/HCPCS: 83036 ==

== ENCOUNTER 2025-02-13 14:45 | Outpatient (REF) | payer OTHER, SELFPAY ==
--- NOTE | ~2025-02-13 | XR_ITS ---
CLINICAL HISTORY: M25.512 - Pain in left shoulder Left shoulder four views Comparison: None provided Findings: No acute fracture or dislocation identified. Dense calcification adjacent to the humeral head. Findings likely represents calcific tendinopathy. Impression: Probable calcific tendinopathy of rotator cuff tendons No acute bony abnormality identified This document has been electronically signed by: Herminio Silvestre MD on 02/13/2025 22:21:03
== END 2025-02-13 14:46 | disposition home or self-care (01) ==
LOC: HO.XRAY 14:45
DX: M25.512 Pain in left shoulder (principal)
CPT/HCPCS: 73030

== ENCOUNTER → 2025-02-13 14:47 | Outpatient (BNV) | payer OTHER, SELFPAY | PROVIDERS: Visit Provider Radiology Diagnostic Radiology | DX: M25.512 Pain in left shoulder (principal) | CPT/HCPCS: 73030 ==

== ENCOUNTER 2025-07-25 08:23 | Outpatient (AMB) | payer OTHER, SELFPAY ==
--- NOTE | 2025-07-25 08:26 | A.OFFPC_ITS ---
Vital Signs 07/25/25 08:27 Height 5 ft 6.93 in Weight 235 lb BMI 36.9 BP 116/78 Blood Pressure Location Lt brachial Position Sitting Respiration 18 Pulse 64 Pulse Source Pulse Oximeter Temp 97.3 F Temp Source Temporal Artery Scan Pulse Oximetry (%) 97 Oxygen Delivery Method Room Air Intake Visit Reasons: f/u dm Elect Equip Maint Eng Required: No Accompanied by: Self / Same As Patient Allergies No Known Allergies (No Known Allergies*) Allergy (Verified 07/25/25 08:41) Medication List - Last Reconciled 07/25/25 by Nereyda Buenrostro PA-C blood sugar diagnostic (FreeStyle Lite Strips) As directed BID blood-glucose meter (FreeStyle Lite Meter kit) As directed BID cyclobenzaprine 5 mg PO BEDTIME PRN lidocaine 5% 1 patch topical DAILY PRN Tobacco use date assessed: 02/13/25 Dental Screening Dental Screen Date: 02/13/25 HPI f/u dm HPI Details 50 year old male with past medical histo ry of newly diagnosed diabetes mellitus, hypercholesterolemia, migraine, and obesity last seen 01/2025 coming in for follow up on diabetes mellitus. Presenting for follow-up on his type 2 diabetes and shoulder pain. Regarding his diabetes, his hemoglobin A1c was previously 10 but improved to 7.4% in January and has remained at 7.4% since. He stopped taking metformin about a month ago due to an unpleasant odor from the pills in his second bottle and having nausea while consuming. Since discontinuing the medication, he reports feeling well and has not experienced headaches or sensations of hyperglycemia or hypoglycemia. He continues to experience shoulder pain, which he describes as pretty tough. A prior x-ray revealed tendonitis. He acknowledges difficulty with avoiding overuse due to work and driving. He did not follow through with physical therapy after an initial call. 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 Cognitive needs: No Hearing needs: No Vision needs: No Questionnaire Thrive Questionnaire Date Thrive assessed: 11/07/24 I am a: Patient What is your living situation today?: I have a steady place to live Within the past 12 months, did the food you bought not last and you didn't have the money to get more?: Never true Within the past 12 months, did you worry whether your food would run out before you got money to buy more?: I choose not to answer this question Do you have trouble paying for medicines?: I choose not to answer this question Do you have trouble getting transportation to medical appointments?: No Do you have trouble paying your heating and electricity bill?: I choose not to answer this question Do you have trouble taking care of your child, family member or friend?: No Do you have trouble with day-to-day activities such as bathing, preparing meals, shopping, managing finances, etc.?: No Are you currently unemployed and looking for a job?: Yes Are you interested in more education?: No Currently or been in a relationship where the following occur: No concerns reported THRIVE Score: 0 YNES-7 AMB Questionnaire YNES-7 Date YNES - 7 assessed: 02/13/25 Source: Developed by Drs. Ricardo Renteria, Ellie Santoro, George Hanley and colleagues, with an educational j carlos from [employer]. Review of Systems Const Denies body aches, Denies chills, Denies fever(s), Denies headache(s) and Denies poor appetite Eyes Reports no additional complaints ENT Denies dizziness and Denies headache(s) Card Denies chest pain, Denies edema, Denies lightheadedness and Denies dyspnea Resp Denies dyspnea GI Denies abdominal pain, Reports nausea and Denies vomiting Reports no additional complaints Musc Reports as per HPI and Denies abnormal gait Skin/Breast Reports system reviewed and no additional complaints, except as documented Neuro Denies abnormal gait, Denies dizziness and Denies headache(s) Psych Reports no additional complaints Physical exam (Primary Care) Vital Signs: Last Vital Signs Temp 97.3 F 07/25/25 08:27 Pulse 64 07/25/25 08:27 Resp 18 07/25/25 08:27 BP 116/78 07/25/25 08:27 Pulse Ox 97 07/25/25 08:27 Oxygen Delivery Method Room Air 07/25/25 08:27 BMI result Body Mass Index 36.9 Tobacco/Smoking Status: Tobacco use Status Tobacco use date assessed 02/13/25 07/25/25 08:27 Patient Tobacco Use Status Former Tobacco user 07/25/25 08:27 e-Cigarette/Vaping Use Never Used 07/25/25 08:27 Thrive Assessment: Date of Thrive Assessment Date Thrive assessed 11/07/24 07/25/25 08:27 Currently or been in a relationship where the following occur: No concerns reported Const General: cooperative, healthy appearing, comfortable and no acute distress Orientation/consciousness: patient oriented x3 HENMT Head: Yes normocephalic Ears: hearing grossly normal bilaterally General nose exam: Normal external nose present Eyes General: appearance normal, both eyes and all related structures Conjunctivae: conjunctivae normal Neck Neck: Yes full ROM and Yes no lymphadenopathy Resp Effort & Inspection: normal respiratory effort Auscultation: clear to auscultation bilaterally, no crackles, no rales, no rhonchi and no wheezes Cardio Rate: regular rate Rhythm: regular rhythm Skin General skin exam: no rashes or lesions noted Neuro General: patient oriented x3 Gait exam (Neuro): Normal gait present Extrem General: Yes normal to inspection, Yes full ROM and No edema Psych Affect: normal affect Attitude: cooperative Insight: Good insight present (Psych) Judgement: Good judgement present (Psych) Results AMB Hemoglobin A1c AMB Hemoglobin A1c 7.4 % Last Edit by Nafisa Palma CMA on 07/25/25 08 :46 Coding Level of Care Code Est Pt Level 3 (95272) Diagnoses Type 2 diabetes mellitus with hyperglycemia, without long-term current use of insulin E11.65 Diabetes mellitus complication status: with hyperglycemia Diabetes mellitus senior living insulin use: without senior living use Diabetes mellitus type: type 2 Obesity (BMI 30-39.9) E66.9 Left shoulder pain M25.512 Hypercholesterolemia E78.00 Assessment & Plan Assessment & Plan (1) Diabetes: Code(s): E11.9 - Type 2 diabetes mellitus without complications Category: Medical Qualifiers: Diabetes mellitus complication status: with hyperglycemia 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 Although fruits are generally healthy they should be eaten in moderation as they are still high in sugar. Hemoglobin A1c goal of less than 7%. Patient was increased on Metformin at last visit. A1c in the clinic today 7.4% which is the same from last visit. Due to adverse reaction to Metformin plan to trial Invokana for blood sugars as his A1c is still not at goal. Follow up in 3 months. (2) Obesity (BMI 30-39.9): Code(s): E66.9 - Obesity, unspecified Category: Medical Plan: Healthy diet and regular exercise is encouraged. (3) Left shoulder pain: Code(s): M25.512 - Pain in left shoulder Category: Medical Plan: The patient continues to have shoulder pain secondary to tendonitis, confirmed on a previous x-ray. He has not yet attended physical therapy. The plan is to re-engage with physical therapy; a phone number was provided for him to schedule an appointment, with the understanding that a new order can be placed if necessary. Prescriptions for lidocaine and a muscle relaxer have been refilled. Conservative management including rest, icing, and avoiding overuse was reinforced. (4) Hypercholesterolemia: Code(s): E78.00 - Pure hypercholesterolemia, unspecified Category: Medical Plan: Avoid foods that are high in cholesterol such as red meat, fried foods, eggs and baked goods. Triglyceride goal of less than 150 and LDL goal of less than 100. LDL mildly elevated at 125. Discussed ASCVD risk score of 6% borderline. He would like to hold off on medication at this time and would like to work on lifestyle modification at this time. Given resources today and repeat labs in 3 months. Understands the risk of elevated LDL. Reminded about blood work. Plan This note was constructed using voice recognition software. While every effort has been made to ensure accuracy and pest control service technician, still areas may have been included sometimes these areas may affect the content or meeting of the given symptoms. Total time spent caring for the patient today was 20 minutes. This includes time spent before the visit reviewing the chart, time spent during the visit, and time spent after the visit and documentation. Patient was informed and verbally consented to the use of an ambient scribe for clinic note documentation during this visit. Orders: Orders AMB Hemoglobin A1c Today Z13.9 - Encounter for screening, unspecified Medications: New canagliflozin 100 mg PO DAILY 90 tabs 0RF Changed From cyclobenzaprine 5 mg PO BEDTIME PRN To cyclobenzaprine 5 mg PO BEDTIME 14 tabs 0RF From lidocaine 5% leave on most painful area for up to 12 hrs 1 patch topical DAILY PRN M25.512 - Pain in left shoulder To lidocaine 5% leave on most painful area for up to 12 hrs 1 patch topical DAILY 30 ea 0RF M25.512 - Pain in left shoulder Refilled cyclobenzaprine 5 mg PO BEDTIME 30 tabs 0RF
--- OUTSIDE RECORDS SUMMARY | 2025-07-25 08:26 | XMS_ITS | Patient Health Record ---
Author Organization [facility] Address [address] [place] [address] Care Team Providers Care Inventory And Pricing Associate Name Role Phone Ruiz Hsu Primary Care Provider Billy Davis Jr Unavailable Allergies No Known Allergies Reason For Referral No Information Medications Medication SIG (Take, Route, Frequency, Duration) Notes Start Date End Date Status metFORMIN HCl ER Act dominick MiraLax (colon prep) 17 GM/SCOOP Powder mixed with Gatorade or Crystal Light Orally begin at 5:00 p.m. the day before the procedure; Duration: 1 day 02/05/2022 Active Immunizations Vaccine Route Administration Date Status Comme nts Influenza Unknown 04/02/2021 Administered Social History Tobacco Use: Social History Observation Description Date Details (start date - stop date) Never Smoker NA - NA Social History Drugs/Alcohol: Social Info Question Answer Notes Alcohol Screen Did you have a drink containing alcohol in the past year? 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 [employer] Problems Problem Type SNOMED Code ICD Code Onset Dates Problem Status W/U Status Risk Notes Problem Colon cancer screening (656564662) Colon cancer screening (Z12.11) Active confirmed Problem Pre-procedure evaluation check (837698031) Encounter for other preprocedural examination (Z01.818) Active confirmed Problem Long-term current use of drug therapy (329094358) prison (current) use of oral hypoglycemic drugs (Z79.84) Active confirmed Plan Of Treatment Future Test Test Name Order Date COLONOSCOPY 02/05/2022 Insurance Providers Payer Name Payer Address Payer Phone Subscriber Number Group Number Insured Name Patient Relationship to Insured Coverage Start Date Coverage End Date [facility] [address] [facility] [place] [address] [phone] [id number] KARMA BISHOP Self - patient is the insured Medical (General) History Medical History History ICD Code Nephrolithiasis prediabetic Migraine headaches Surgical History Surgery Date(Month/Year) Lumbar back fusion x2, one by anterior a pproach vasectomy cyst removed from neck
--- OUTSIDE RECORDS SUMMARY | 2025-07-25 08:26 | XMS_ITS | Clinical Summary ---
Author Organization [employer] Address [address] [facility] [address] [place] [address] Care Team Providers Care Dinkey Engine Firer/Fireman Name Role Phone Unavailable Primary Care Provider [...] of 3 - 19+ 3-dose series) 1993 Pneumococcal Vaccine: 50+ Years (1 of 1 - PCV) 2024 Zoster Vaccines (1 of 2) 2024 COVID-19 Vaccine (4 - 2024-2 6 season) 2025 10/03/2021, 12/16/2020, 11/25/2020 Influenza Vaccine (#1) 2025 10/03/2021 Tobacco Screening [...] HEPATITIS C ANTIBODY NON-REACT BEKA NON-REACT BEKA [facility] INDEX 0.04 <1.00 [facility] Comment: HCV antibody was non-reactive. There is no laboratory evidence of HCV infection. In most cases, no further action is required. However, if recent HCV exposure is suspected, a test for HCV RNA (test code 65385) is suggested. For additional information please refer to http://[employer].UrbanFarmers/faq/HES39p2 (This link is being provided for informational/ educational purposes only.) 11/12/2021 8:36 AM EDT us Ruiz Hsu MD HISTORICAL/NON ORDERABLE LAB S Final Result [facility] [address] * HIV 1/2 ANTIGEN/ANTIBODY,FOURTH GENERATION W/RFL (11/12/2021 8:36 AM EDT) HIV-1/2 ANTIGEN AND ANTIBODIES, 4TH GENERATION W/ REFLEX NON-REACT BEKA NON-REACT BEKA [facility] Comment: HIV-1 antigen and HIV-1/HIV-2 [...] purpose. For additional information please refer to http://[employer].UrbanFarmers/faq/NCP713 (This link is being provided for informational/ educational purposes only.) The performance of this assay has not been clinically validated in patients less than 2 years old. 11/12/2021 8:36 AM EDT us Ruiz Hsu MD LAB BLOOD ORDERABLES Final R esult Performing Organization Address [facility] Co de Phone Number [facility] [address] * (ABNORMAL) LIPID PANEL, STANDARD (11/12/2021 [...] LDL-C. Julian SS et al. RADHA. 2013;310(19): 4798-9174 (http://education.Mobi/faq/HTB952) Non-HDL Cholesterol 191(H) <130 mg/dL (calc) [facility] [...] ORDERABLES Final R esult Performing Organization Address [facility]/ZIP Co de Phone Number [facility] [address] from Last 3 Months or Most Recently Relevant to Health Maintenance Insurance [facility] , [address] [place] [address]
[2025-07-25 08:27] VITALS: BP 116/78; PULSE 64; RESP 18; TEMP 36.3; O2SAT 97; BMI 36.9
== END 2025-07-25 08:58 | disposition home or self-care (01) ==
LOC: HO.HMCH 08:24
DX: E11.65 Type 2 diabetes mellitus with hyperglycemia (principal); E66.9 Obesity, unspecified; M25.512 Pain in left shoulder; E78.00 Pure hypercholesterolemia, unspecified; Z13.9 Encounter for screening, unspecified

== ENCOUNTER → 2025-07-25 08:23 | Outpatient (BNVA) | payer OTHER, SELFPAY | DX: E11.65 Type 2 diabetes mellitus with hyperglycemia (principal); E66.9 Obesity, unspecified; M25.512 Pain in left shoulder; E78.00 Pure hypercholesterolemia, unspecified; Z68.36 Body mass index [BMI] 36.0-36.9, adult | CPT/HCPCS: 83036 ==